=== PATIENT | male | born 1995 | race Caucasian/White ===

== ENCOUNTER 2019-03-06 12:23 | Emergency (ER) | payer MEDICAID, SELFPAY ==
[2019-03-06 12:23] VITALS: BP 125/67; PULSE 80; RESP 16; TEMP 37.1; O2SAT 96; BMI 29.8
--- NOTE | 2019-03-06 12:39 | ED.DCSUM_ITS ---
History of Present Illness Chief Complaint: Rash Narrative: 24-year-old healthy male presents with a rash on his right foot and leg. He was carrying logs and walking through poison [employer] and [employer]. He has had this before and gets it quite easily from exposure. He has no other symptoms. He feels the exact same as prior reactions. He has not taken any medication yet. This started gradually 2 days ago and the severity is mild. There are no relieving or exacerbating factors. Past Medical History - Allergies and Home Meds Allergies/Adverse Reactions: Allergies No Known Allergies Allergy (Verified 03/06/19 12:25) Primary Care Physician: Care Physician,No Primary [Primary Care Provider] - Prior records reviewed: Yes Past Medical History: None Smoking Status: Current every day smoker Review of Systems General: Denies: Chills, Fever, Sweats Eyes: Denies: Visual changes - bilaterally, Diplopia ENT: Denies: Rhinorrhea, Sore throat Cardiovascular: Denies: Chest pain, Palpitations Respiratory: Denies: Dyspnea, Cough, Dyspnea on exertion Gastrointestinal: Denies: Abdominal pain, Nausea, Vomiting, Diarrhea, Melena, Hematochezia Genitourinary: Denies: Dysuria, Hematuria, Frequency Musculoskeletal: Denies: Back pain, Extremity Pain Skin: Reports: Rash. Denies: Wounds Neurological: Denies: Headache, Weakness, Numbness Physical Exam Vital Signs/Narrative: Vital Signs Temp Pulse Resp BP Pulse Ox 03/06/19 12:23 98.7 F 80 16 125/67 H 96 General: Well nourished, Well developed, No Acute Distress Head: Normocephalic, Atraumatic Eyes: Perrl, EOMI ENT: Moist mucous membranes, No rhinorrhea Neck: Supple, Nontender Cardiovascular: Regular rate, Regular rhythm, No murmurs Respiratory: No distress, CTA bilaterally, Chest nontender Abdomen: Soft, Nontender, Nondistended, Normal bowel sounds Back: Nontender, Normal Inspection Extremities: Nontender, No edema Skin: Normal color, - - Based linear-appearing erythematous rash on his right foot dorsal surface and right anterior leg. No secondary cellulitis. Neurological: Alert, Oriented x3, Cranial nerves II-XII grossly intact, Normal Strength, Normal Sensation Psychological: Normal affect, Normal Mood Diagnostic/Tx/Re-eval - Medical Decision Making Appears fairly classic for a plant reaction type dermatitis. I will treat him with oral prednisone which has worked well for him. ED Disposition - Plan for ED Patient: Diagnosis: Dermatitis due to plants, including poison [place], [place], and [place] Instructions: ED Dermatitis Poison [place], ED Dermatitis Poison [place] Prescriptions: Prednisone 10 mg PO DAILY #63 tablet Referrals: Alicia Gaytan [NON-STAFF] -
== END 2019-03-06 13:26 | disposition home or self-care (01) ==
PROVIDERS: Emergency Provider Emergency Medicine
DX: L23.7 Allergic contact dermatitis due to plants, except food (principal); F17.200 Nicotine dependence, unspecified, uncomplicated
CPT/HCPCS: 99282

== ENCOUNTER 2023-03-22 12:42 | Emergency (ER) | payer SELFPAY ==
[2023-03-22 12:43] VITALS: BP 163/89; PULSE 85; RESP 18; TEMP 36.1; O2SAT 100; BMI 30.9
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
[2023-03-22 15:55] LABS: Chlamydia Trachomatis by PCR Negative (Negative); Neisserai gonorrhoeae by PCR Negative (Negative); Probe Check PASS; Sample Adequacy Control PASS; Specimen Processing Control PASS
[2023-03-29 06:09] LABS: HSV 1 By PCR Negative (Negative); HSV 2 By PCR Negative (Negative)
--- NOTE | 2023-03-29 10:14 | ED.RN ---
THIS RN RECEIVED A PHONE CALL FROM LAB FOR FOLLOW UP STI TEST RESULTS. RESULTS REVIEWED PER MD DR. LEPE. PT TO BE TREATED WITH DOXCYCLINE 100MG BID X SEVEN DAYS. PT INFORMED OF RESULTS AND PRESCRIPTION CHANGES. PT TO FOLLOW UP WITH PCP.
== END 2023-03-22 13:42 | disposition home or self-care (01) ==
PROVIDERS: Emergency Provider Emergency Medicine; Referring Provider Emergency Medicine; Visit Provider Emergency Medicine
DX: Z20.2 Contact with and (suspected) exposure to infections with a predominantly sexual mode of transmission (principal); R21 Rash and other nonspecific skin eruption; F17.210 Nicotine dependence, cigarettes, uncomplicated
CPT/HCPCS: 86780; 87491; 87529; 87591; 99282

== ENCOUNTER 2024-06-15 09:38 | Emergency (ER) | payer SELFPAY ==
[2024-06-15 09:40] VITALS: BP 154/82; PULSE 75; RESP 18; TEMP 37; O2SAT 99; BMI 28.9
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
[2024-06-15 11:07] VITALS: BP 148/78; PULSE 72; RESP 16; TEMP 36.9; O2SAT 98
== END 2024-06-15 11:13 | disposition home or self-care (01) ==
PROVIDERS: Emergency Provider Emergency Medicine; Visit Provider Emergency Medicine
DX: S50.01XA Contusion of right elbow, initial encounter (principal); S40.012A Contusion of left shoulder, initial encounter; S80.02XA Contusion of left knee, initial encounter; S50.311A Abrasion of right elbow, initial encounter; S20.20XA Contusion of thorax, unspecified, initial encounter; F17.210 Nicotine dependence, cigarettes, uncomplicated; V89.2XXA Person injured in unspecified motor-vehicle accident, traffic, initial encounter
CPT/HCPCS: 71046; 73030; 73080; 73564; 99282